=== PATIENT | female | born 1965 | race Caucasian/White ===

== ENCOUNTER → 2022-01-23 15:41 | Outpatient (BNVA) | payer SELFPAY | PROVIDERS: Family Provider Nurse Practitioner; PCP Nurse Practitioner; Visit Provider Nurse Practitioner | DX: I10 Essential (primary) hypertension (principal) | CPT/HCPCS: 80053; 80061; 85025 ==

== ENCOUNTER → 2023-01-22 16:00 | Outpatient (BNVA) | payer SELFPAY | PROVIDERS: Family Provider Nurse Practitioner; PCP Nurse Practitioner; Visit Provider Nurse Practitioner | DX: I10 Essential (primary) hypertension (principal) | CPT/HCPCS: 80053; 80061; 84443 ==

== ENCOUNTER → 2023-08-12 11:36 | Outpatient (BNVA) | payer SELFPAY | PROVIDERS: Family Provider Nurse Practitioner; PCP Nurse Practitioner; Visit Provider Nurse Practitioner Family | DX: M79.2 Neuralgia and neuritis, unspecified (principal) | CPT/HCPCS: 80053; 80061; 82306; 82607; 83036; 85025 ==

== ENCOUNTER → 2023-12-30 13:29 | Outpatient (BNVA) | payer SELFPAY | PROVIDERS: Family Provider Nurse Practitioner; PCP Nurse Practitioner; Visit Provider Nurse Practitioner | DX: I10 Essential (primary) hypertension (principal) | CPT/HCPCS: 80053; 80061 ==

== ENCOUNTER 2024-04-27 10:05 | Emergency (ER) | payer SELFPAY ==
--- NOTE | 2024-04-27 10:07 | XRR_ITS ---
PROCEDURE INFORMATION: Exam: XR Right Foot Exam date and time: 04/27/2024 10:25 AM Age: 58 years old Clinical indication: Injury or trauma; Fall; Blunt trauma; Foot; Right; Additional info: Fall/injury TECHNIQUE: Imaging protocol: Radiologic exam of the right foot. Views: 3 or more views. COMPARISON: No relevant prior studies available. FINDINGS: Bones/joints: Mild diffuse demineralization. Nondisplaced fracture through the base of the 2nd metatarsal, minimal irregularity at the base of the 3rd metatarsal. Mild degenerative changes at the 1st MTP joint. Soft tissues: Normal. Other findings: . XR/XR foot RT min 3V* [id number] IMPRESSION: Fracture of the 2nd and questionably 3rd metatarsal.
[2024-04-27 10:30] VITALS: BP 131/80; PULSE 95; RESP 18; TEMP 36.8; O2SAT 95; BMI 20.1
--- NOTE | 2024-04-27 11:13 | W.ED.LOWEXIN ---
HPI - Extremity Injury (Lower) General: Chief Complaint: Extremity Injury, Lower Stated Complaint: right foot pain, fall Time Seen by Provider: 04/27/24 10:17 Source: patient Mode of arrival: wheelchair Limitations: no limitations History of Present Illness: Patient is a 58-year-old female presents to ED today for evaluation of a right foot injury that she sustained 3 days ago after accidentally tripping and falling over something in her home and injuring the foot. Patient states she has not been able to bear weight on the foot since the injury and has been using a wheelchair she has at home. complaint: foot injury Onset (ago): day(s) Injury: Right: foot Place: home Severity: severe Relieving factors: immobilization Exacerbating factors: weight bearing, movement and palpation Context: fall Associated symptoms: Reports inability to bear weight Other symptoms: none Review of Systems Musc: Reports: extremity pain (R foot) and extremity swelling (R foot) Neuro: Reports: difficulty walking (secondary to R foot pain); Denies: numbness in extremities, weakness in extremities or sensory changes PFS ED PFSH: Medical History Personal history of nicotine dependence Hyperlipidemia, mixed Daily consumption of alcohol Hypertension Alcoholic gastritis Surgical History History of bilateral breast biopsy less than age 32 Family History Father Cancer Lung Mother Hypothyroidism Social History Smoking and tobacco/nicotine status: current every day tobacco/nicotine user Second hand smoke exposure: Yes Alcohol intake: current Alcohol intake frequency: 3 or more drinks per day Substance/Drug Use: unknown Adopted: No Caregiver/support person: No Lives independently: Yes Household members: spouse Housing: House Number of children: 3 Number of grandchildren: 7 service: No Current occupational status: unemployed Current occupational exposures/hazards: No Do you think of yourself as: Straight/Heterosexual Current gender identity: Female Physical Exam Const: COMMON NORMALS: no acute distress, average body habitus, patient oriented x3, no limitations, healthy appearing, alert and well nourished Extremity: COMMON NORMALS: capillary refill normal and no calf tenderness GENERAL: Yes normal exam except as noted RIGHT LOWER EXTREMITY: Yes foot & digits (tenderness, edema, and ecchymosis throughout dorsal R foot) Right foot and digits: Yes ROM (limited secondary to pain) and Yes neurovascular exam (normal) Neuro: COMMON NORMALS: patient oriented x3, moves all extremities, no focal motor deficits and no sensory deficits noted SENSORIUM/ORIENTATION: Yes alert Course Vital Signs: Vital signs: Vital Signs Temperature 98.3 F 04/27/24 10:30 Pulse Rate 90 04/27/24 11:23 Respiratory Rate 16 04/27/24 11:23 Blood Pressure 137/83 04/27/24 11:23 Pulse Oximetry 95 04/27/24 11:23 Oxygen Delivery Me thod Room Air 04/27/24 11:23 MDM - Extremity Injury (Lower) Medical Decision Making Patient will be splinted and will have her follow-up with orthopedics/podiatry. Lab Data Radiology Impressions Foot X-Ray 04/27/24 10:07 IMPRESSION: Fracture of the 2nd and questionably 3rd metatarsal. All radiology interpretation(s) finalized by discharge Discharge Plan Discharge Patient Disposition: Home Clinical Impression: Closed fracture of metatarsal of right foot Qualifiers: Encounter type: initial encounter Metatarsal bone: unspecified metatarsal Fracture alignment: nondisplaced Qualified Code(s): S92.301A - Fracture of unspecified metatarsal bone(s), right foot, initial encounter for closed fracture Condition: Stable Prescriptions: New hydrocodone-acetaminophen 5-325 mg tablet 1 tab PO Q6H PRN (Reason: pain) Qty: 14 0RF No Action hydralazine 25 mg tablet 25 mg PO TID PRN (Reason: for excessive blood pressure) Qty: 90 0RF Metamucil 3.4 gram/5.4 gram powder 1 tbsp PO BID Qty: 660 0RF Rx Instructions: mix into at least 8 oz of water or juice before administering gabapentin 300 mg capsule 300 mg PO .at bedtime Qty: 30 5RF amlodipine [Norvasc] 10 mg tablet 10 mg PO DAILY Qty: 30 5RF metoprolol succinate 25 mg tablet extended release 24 hr 25 mg PO .at bedtime Qty: 30 5RF cholecalciferol (vitamin D3) 125 mcg (5,000 unit) capsule 125 mcg PO DAILY Qty: 30 0RF ibuprofen 800 mg tablet 800 mg PO TID PRN (Reason: pain) Qty: 28 0RF Discharge Orders: Discharge ED (Routine); Ordered 04/27/24 Ordered By: Jacque Mendez Referrals: Izabela Choudhary FNP-C [Primary Care Provider] - Patient Instructions: Foot Fracture in Adults (ED), Opioid Safety, Pain Management Activity Restrictions/Additional Instructions: As we discussed continue using your wheelchair for nonweightbearing to your right foot. Case management should reach out to you this week to help set you up with your follow-up orthopedic/podiatry appointment. You need to ice and elevate the extremity is much as possible to help with swelling. Coding Level of Care Code ED Parking Enforcement Manager for Marivel Nesbitt
[2024-04-27 11:23] VITALS: BP 137/83; PULSE 90; RESP 16; O2SAT 95
--- NOTE | 2024-04-27 11:23 | DCPLANNER ---
messaged podiatry for er f/u
[2024-04-27 11:51] VITALS: BP 154/86; PULSE 97; RESP 16; O2SAT 93
== END 2024-04-27 12:00 | disposition home or self-care (01) ==
PROVIDERS: Emergency Provider Physician Assistant; Family Provider Nurse Practitioner; PCP Nurse Practitioner
DX: S92.324A Nondisplaced fracture of second metatarsal bone, right foot, initial encounter for closed fracture (principal); E78.2 Mixed hyperlipidemia; I10 Essential (primary) hypertension; Z72.0 Tobacco use; W01.0XXA Fall on same level from slipping, tripping and stumbling without subsequent striking against object, initial encounter
CPT/HCPCS: 29515; 73630; 99283

== ENCOUNTER → 2024-05-20 10:12 | Outpatient (BNVA) | payer SELFPAY | PROVIDERS: Family Provider Nurse Practitioner; PCP Nurse Practitioner; Visit Provider Podiatrist Foot & Ankle Surgery | DX: S92.324A Nondisplaced fracture of second metatarsal bone, right foot, initial encounter for closed fracture; S92.334A Nondisplaced fracture of third metatarsal bone, right foot, initial encounter for closed fracture; W19.XXXA Unspecified fall, initial encounter | CPT/HCPCS: 73630 ==

== ENCOUNTER → 2024-06-25 10:20 | Outpatient (BNVA) | payer SELFPAY | PROVIDERS: Family Provider Nurse Practitioner; PCP Nurse Practitioner; Visit Provider Nurse Practitioner | DX: E78.2 Mixed hyperlipidemia (principal); I10 Essential (primary) hypertension; E55.9 Vitamin D deficiency, unspecified | CPT/HCPCS: 80053; 80061; 82306 ==

== ENCOUNTER → 2024-12-10 13:32 | Outpatient (BNVA) | payer SELFPAY | PROVIDERS: Family Provider Nurse Practitioner; PCP Nurse Practitioner; Visit Provider Nurse Practitioner | DX: I10 Essential (primary) hypertension (principal) | CPT/HCPCS: 80053 ==

== ENCOUNTER → 2025-01-27 10:52 | Outpatient (BNVA) | payer SELFPAY | PROVIDERS: Family Provider Nurse Practitioner; PCP Nurse Practitioner; Visit Provider Clinical Nurse Specialist Adult Health | DX: R30.0 Dysuria (principal) | CPT/HCPCS: 81000 ==

== ENCOUNTER 2025-07-18 12:51 | Emergency (ER) | payer SELFPAY ==
[2025-07-18 12:53] VITALS: BP 144/93; PULSE 101; RESP 16; TEMP 36.8; O2SAT 91; BMI 19.0
--- NOTE | 2025-07-18 12:53 | XRR_ITS ---
PROCEDURE INFORMATION: Exam: XR Left Hip Exam date and time: 07/18/2025 1:13 PM Age: 60 years old Clinical indication: Hip pain and pelvic pain; Left hip; Additional info: Lt hip/pelvic pain post fall x 3 days ago TECHNIQUE: Imaging protocol: Radiologic exam of the left hip. Views: 2 or 3 views hip with pelvis when performed. COMPARISON: No relevant prior studies available. FINDINGS: Bones/joints: Unremarkable. No acute fracture. Soft tissues: Unremarkable. XR/XR hip LT 2-3V wo/w pel* [id number] IMPRESSION: No acute findings.
--- NOTE | 2025-07-18 12:57 | ED_ITS ---
HPI - Extremity Problem General: Chief complaint: Extremity Injury, Lower Stated complaint: left hip pain s/p fall Time Seen by Provider: 07/18/25 12:51 History of Present Illness: 60-year-old female with a history of hyp erlipidemia, hypertension and neuropathic pain who presents to the emergency room by ambulance with left hip pain. She had a fall 2 days ago. Her helped her to her bed and she says she has been there since and has not been able to walk. She says she was walking with her walker and lost her balance and fell. She did not hit her head. No shortening or rotation but she does have pain with movement. Related Data Previous Rx's ?Medication ?Instructions ?Recorded hydralazine 25 mg tablet 25 mg PO TID PRN for excessi ve 07/24/23 blood pressure #90 tabs psyllium husk 3.4 gram/5.4 gram 1 tbsp PO BID #660 gra ms 07/24/23 oral powder (Metamucil) cholecalciferol (vitamin D3) 125 125 mcg PO DAILY #30 caps 12/30/23 mcg (5,000 unit) capsule ondansetron 4 mg disintegrating 4 mg PO Q8H PRN nausea and 01/27/25 tablet vomiting #30 tabs amlodipine 10 mg tablet (Norvasc) 10 mg PO DAILY #30 t abs 05/11/25 chlorhexidine gluconate 0.12 % 15 ml buccal BID #118 m L 05/11/25 mouthwash (Peridex) cilostazol 100 mg tablet 100 mg PO BID #60 tabs 05/11 gabapentin 300 mg capsule 300 mg PO BID #60 caps 05/11 ibuprofen 800 mg tablet 800 mg PO DAILY PRN pain #28 tabs 05/11/25 metoprolol succinate 50 mg 50 mg PO .at bedtime #30 ta bs 05/11/25 tablet,extended release 24 hr oxycodone-acetaminophen 5 mg-325 1 tab PO Q8H PRN pain #30 tabs 07/18/25 mg tablet (Percocet) polyethylene glycol 3350 17 17 g PO DAILY #510 grams 1 gram/dose oral powder (Miralax) Allergies Allergy/AdvReac Type Severity Reaction Status Date / Time tramadol Allergy Severe ALGY-Difficulty Verified 05/11/25 12:54 Breathing morphine Allergy Unknown Unknown Verified 05/11/25 12:54 Review of Systems Narrative: Constitutional symptoms: Negative except as documented in HPI. Skin symptoms: Negative except as documented in HPI. Eye symptoms: Negative except as documented in HPI. ENMT symptoms: Negative except as documented in HPI. Respiratory symptoms: Negative except as documented in HPI. Cardiovascular symptoms: Negative except as documented in HPI. Gastrointestinal symptoms: Negative except as documented in HPI. Genitourinary symptoms: Negative except as documented in HPI. Musculoskeletal symptoms: Negative except as documented in HPI. Neurologic symptoms: Negative except as documented in HPI. Psychiatric symptoms: Negative except as documented in HPI. Endocrine symptoms: Negative except as documented in HPI. PFSH ED PFSH: Medical History (Updated 07/18/25 @ 14:33 by Apoorva Niño MD) Personal history of nicotine dependence Hyperlipidemia, mixed Daily consumption of alcohol Hypertension Alcoholic gastritis Surgical History History of bilateral breast biopsy less than age 32 Family History Father Cancer Lung Mother Hypothyroidism Social History Smoking and tobacco/nicotine status: never used tobacco/nicotine Second hand smoke exposure: Yes Alcohol intake: current Alcohol intake frequency: 3 or more drinks per day Substance/Drug Use: unknown Adopted: No Caregiver/support person: No Lives independently: Yes Household members: spouse Housing: House Number of children: 3 Number of grandchildren: 7 service: No Current occupational status: unemployed Current occupational exposures/hazards: No Do you think of yourself as: Straight/Heterosexual Current gender identity: Female Physical Exam Narrative: EXAM NARRATIVE: General: Alert, no acute distress. Skin: warm and dry Head: Normocephalic Neck: Trachea midline Eye: Extraocular movements are intact. Ears, nose, mouth and throat: Oral mucosa moist Respiratory: Respirations are non-labored Musculoskeletal: No shortening or rotation but she does have pain in her left hip with movement. Gastrointestinal: Abdomen does not appear distended Neurological: Alert and oriented, No focal neurological deficit observed. Psychiatric: Cooperative, appropriate mood & affect. Course Vital Signs: Vital signs: Vital Signs Temperature 98.2 F 07/18/25 12:53 Pulse Rate 97 07/18/25 13:43 Respiratory Rate 18 07/18/25 13:43 Blood Pressure 151/89 07/18/25 13:43 Pulse Oximetry 95 07/18/25 13:43 Oxygen Delivery Me thod Room Air 07/18/25 12:53 MDM - Extremity (Nontraumatic) Medical Decision Making Medical decision making: Differential diagnosis for the patient with fall and hip pain includes but not limited to and based on the above HPI, review of systems and physical exam: Hip fracture, femur fracture, pelvic fractures including pubic rami and acetabular fractures, hip strain, hip contusion X-ray of the pelvis and hip were ordered. Appears to be some possible deformity of the inferior pubic ramus. Also possible sacral deformity. I ordered a CT to further evaluate. Films were interpreted by myself the emergency room provider and pending final radiology review. CT of the pelvis without contrast: Bilateral sacral alar fractures. Anterior cortical fracture of the S2 segment of the sacrum. This was reviewed and interpreted by myself the emergency room physician. I also reviewed the radiology report. Reexamination: Patient remained stable. No increased work of breathing. No altered mental status. No focal motor deficits. I discussed findings and nonweightbearing. Patient expresses understanding. Consultation: I spoke with Dr. Hobson who is on-call for orthopedics who recommends nonweightbearing and follow-up. Assessment and plan: Pelvic fracture ?Oxycodone in the emergency room. - Discharged home - Discussed plan with patient. Answered any questions. - Evaluation and treatment of this problem were appropriate in the emergency setting. Lab Data Radiology Impressions Hip/Pelvis X-Ray 07/18/25 12:53 IMPRESSION: No acute findings. ADDENDUM: 07/18/25 1516 Subtle radiolucency in the left sacral ala consistent with sacral ala fracture. Mild osteopenia is present. Suspect insufficiency fracture. Pelvis CT 07/18/25 13:31 IMPRESSION: 1. Bilateral sacral alar fractures. 2. Anterior cortical fracture of the S2 segment of sacrum. All radiology interpretation(s) finalized by discharge Discharge Plan Discharge Patient Disposition: Home Clinical Impression: Closed pelvic fracture Condition: Stable Prescriptions: New oxycodone-acetaminophen [Percocet] 5-325 mg tablet 1 tab PO Q8H PRN (Reason: pain) Qty: 30 0RF polyethylene glycol 3350 [Miralax] 17 gram/dose powder 17 g PO DAILY Qty: 510 0RF Rx Instructions: Take 1 scoop daily while taking pain medications. No Action cilostazol 100 mg tablet 100 mg PO BID Qty: 60 5RF amlodipine [Norvasc] 10 mg tablet 10 mg PO DAILY Qty: 30 5RF gabapentin 300 mg capsule 300 mg PO BID Qty: 60 5RF metoprolol succinate 50 mg tablet extended release 24 hr 50 mg PO .at bedtime Qty: 30 5RF chlorhexidine gluconate [Peridex] 0.12 % mouthwash 15 ml buccal BID Qty: 118 5RF ibuprofen 800 mg tablet 800 mg PO DAILY PRN (Reason: pain) Qty: 28 2RF ondansetron 4 mg tablet,disintegrating 4 mg PO Q8H PRN (Reason: nausea and vomiting) Qty: 30 0RF hydralazine 25 mg tablet 25 mg PO TID PRN (Reason: for excessive blood pressure) Qty: 90 0RF Metamucil 3.4 gram/5.4 gram powder 1 tbsp PO BID Qty: 660 0RF Rx Instructions: mix into at least 8 oz of water or juice before administering cholecalciferol (vitamin D3) 125 mcg (5,000 unit) capsule 125 mcg PO DAILY Qty: 30 0RF Discharge Orders: Discharge ED (Routine); Ordered 07/18/25 Ordered By: Apoorva Niño Referrals: Izabela Choudhary FNPDerejeC [Primary Care Provider, Family Practice] Josep Hobson MD [Physician, Orthopedics] - 4-7 days Referral Note: Please call for follow-up appointment Discharge Activity: Limit activity as instructed Patient Instructions: Opioid Safety, Pain Management, Patient Portal & Adrienne Instructions Activity Restrictions/Additional Instructions: Nonweightbearing, touchdown only for the next 2 to 4 weeks. Call for an appointment with orthopedics for repeat x-rays and further instructions. Thank you for choosing [facility] for your healthcare needs today. You have been screened and evaluated and felt safe for discharge. Health conditions do change or evolve sometimes and as such it is important that you follow up with your Primary Doctor to be re checked, 3-5 days is a general good time frame for follow up. You are always welcome to return to the ED for re assessment if your symptoms are worsening or you have new concerns Print Language: Andorran Coding Level of Care Code ED Resort Host for Marivel Nesbitt
--- NOTE | 2025-07-18 13:31 | CTR_ITS ---
PROCEDURE INFORMATION: Exam: CT Pelvis Without Contrast, Skeleton Exam date and time: 07/18/2025 1:50 PM Age: 60 years old Clinical indication: Injury or trauma; Fall; Blunt trauma (contusions or hematomas); Left; Hip; Additional info: Traumatic pelvic pain TECHNIQUE: Imaging protocol: Computed tomography of the pelvis without contrast. Exam focused on the skeleton. Radiation optimization: All CT scans at this facility use at least one of these dose optimization techniques: automated exposure control; mA and/or kV adjustment per patient size (includes targeted exams where dose is matched to clinical indication); or iterative reconstruction. COMPARISON: CR (PELVIS, ) 07/18/2025 1:13 PM RADIATION DOSE METRICS: Total DLP (mGy-cm): 229.73 FINDINGS: Bones/joints: Severe osteopenia. There is a fracture through the left sacral ala accompanied by a smaller more subtle fracture of the lateral right sacral ala. there is also a subtle anterior cortical fracture of the superior anterior S2 sacral segment visible on sagittal images. Soft tissues: Unremarkable. CT/CT pelvis wo con [id number] IMPRESSION: 1. Bilateral sacral alar fractures. 2. Anterior cortical fracture of the S2 segment of sacrum.
[2025-07-18 13:38] VITALS: RESP 18; O2SAT 92
[2025-07-18] MEDS: oxyCODONE 5 mg IR Tab/Cap 10 MG PO ×2 (13:38→15:43)
[2025-07-18 13:43] VITALS: BP 151/89; PULSE 97; RESP 18; O2SAT 95
[2025-07-18 15:42] VITALS: BP 124/80; PULSE 96; O2SAT 93
[2025-07-18 16:01] VITALS: BP 188/87; PULSE 94; O2SAT 90
== END 2025-07-18 16:02 | disposition home or self-care (01) ==
PROVIDERS: Emergency Provider Emergency Medicine; Family Provider Nurse Practitioner; PCP Nurse Practitioner
DX: S32.15XA Type 2 fracture of sacrum, initial encounter for closed fracture (principal); I10 Essential (primary) hypertension; Z87.891 Personal history of nicotine dependence; W19.XXXA Unspecified fall, initial encounter
CPT/HCPCS: 72192; 73502; 99284; J9999